=== PATIENT | female | born 1965 | race Caucasian/White ===

== ENCOUNTER 2017-08-22 16:43 | Emergency (ER) | payer BC ==
[2017-08-22] MEDS ORDERED: Sodium Chloride 0.9% 1,000 ML IV ONE (17:39)
[2017-08-22] MEDS ORDERED: Sodium Chloride 0.9% 10 ML Syringe FLUSH PRN (17:39)
[2017-08-22] MEDS ORDERED: Sodium Chloride 0.9% 2.5 ML Syringe FLUSH PRN (17:39)
[2017-08-22] MEDS ORDERED: methylPREDNISolone Sodium Succinate 125 MG/2 ML SDV IVPUSH ONE (17:39)
[2017-08-22] MEDS ORDERED: Ketorolac 30 MG/ML SDV IVPUSH ONE (17:39)
[2017-08-22] MEDS ORDERED: Albuterol/Ipratropium 3.0-0.5 MG/3 ML Neb Soln NEB ONE (17:39)
--- NOTE | 2017-08-22 17:44 | EDM.PDOC ---
<Jessica Sun - Last Filed: 08/22/17 19:15> ED HPI GENERAL MEDICAL PROBLEM - General Chief Complaint: ENT Problem Stated Complaint: COUGH/CHEST THROAT PAIN/VOMITING Time Seen by Provider: 08/22/17 17:30 - History of Present Illness INITIAL COMMENTS - FREE TEXT/NARRATIVE: HISTORY AND PHYSICAL: History of present illness: Patient is a 51-year-old female with no stated pulmonary history who presents with several days history of cough productive of phlegm sore throat low-grade fever of 99 and diffuse bilateral chest wall pain and upper back pain worse with coughing. Patient has not had any vomiting or abdominal pain and has had no diarrhea. She's been taking Tylenol and ibuprofen and says the highest temp that she has had his 99 but she is unsure of a fever because she keeps taking the medication. She is not specifically taking cough meds. Patient is not a smoker and is not around smokers. Patient is very concerned because of the severe body aches and discomfort as well as the chest wall pain and sore throat. She also complains of nasal congestion and drainage. Patient complains of some left flank pain but she feels it's more due to her coughing but she is concerned about her kidney although she has had no dysuria frequency urgency or hematuria Review of systems: As per history of present illness and below otherwise all systems reviewed and negative. Past medical history: As per history of present illness and as reviewed below otherwise noncontributory. Surgical history: As per history of present illness and as reviewed below otherwise noncontributory. Social history: No reported history of drug or alcohol abuse. Family history: As per history of present illness and as reviewed below otherwise noncontributory. Physical exam: Gen.: Well-developed well-nourished female who is tearful on my evaluation and does not have breathlessness but has a harsh cough productive of some clear and white phlegm on my evaluation and hoarseness without multiple voice. Patient also has nasal quality to voice and is blowing her nose copiously. Vital signs are noted by me including the O2 sat of 96-97% on room air HEENT: Atraumatic, normocephalic, pupils reactive, negative for conjunctival pallor or scleral icterus, mucous membranes moist, throat clear of exudates but there is some slight oropharyngeal erythema, there is no cervical adenopathy or nuchal rigidity, neck supple, nontender, trachea midline. Lungs: Breath sounds bilaterally with instant during expiratory wheezing bilaterally diminished breath sounds in the bases but no work of breathing, breath sounds equal bilaterally, chest nontender. Heart: S1S2, regular, negative for clicks, rubs, or JVD. Abdomen: Soft, nondistended, nontender. NABS. Negative for costovertebral tenderness. Pelvis: Stable nontender. Genitourinary: Deferred. Rectal: Deferred. Extremities: Atraumatic, negative for cords or calf pain. Neurovascular unremarkable. No pedal edema Neuro: Awake, alert, oriented. Cranial nerves II through XII unremarkable. Cerebellum unremarkable. Motor and sensory unremarkable throughout. Exam nonfocal. Diagnostics: CBC CMP rapid strep influenza lactic acid UA chest x-ray CT scan of the abdomen and pelvis Therapeutics: DuoNeb IV fluids Toradol Solu-Medrol morphine Patient is told nursing that the Toradol is not helping her kidney pain which she feels more on the left side and I will go ahead and order her morphine and order a CT scan to evaluate the kidney. I will endorse his case to Dr. Garland to follow-up the CT scan as well as the CMP results and disposition the patient appropriately. Impression: Influenza A positive, bronchospasm/viral bronchitis Definitive disposition and diagnosis as appropriate pending reevaluation and review of above. Sinus/Bilateral Ear/Chest Pain Score (Numeric/FACES): 9 - Related Data Allergies Allergy/AdvReac Type Severity Reaction Status Date / Time broccoli Allergy Abdominal Verified 08/22/17 20:07 Pain metoclopramide [From Reglan] Allergy Anaphylactic Verified 08/22/17 20:04 Shock ED ROS GENERAL - Review of Systems Review Of Systems: ROS reveals no pertinent complaints other than HPI. ED EXAM, GENERAL - Physical Exam Exam: See Below (See dictation) Course - Vital Signs Last Recorded V/S: Last Vital Signs Temp 98.2 F 08/22/17 17:59 Pulse 105 H 08/22/17 17:59 Resp 20 08/22/17 17:59 BP 111/74 08/22/17 17:59 Pulse Ox 96 08/22/17 17:59 - Orders/Labs/Meds Orders: Active Orders 24 hr Category Date Time Status RT Aerosol Therapy [RC] ASDIRECTED Care 08/22/17 17:39 Active Abdomen Pelvis wo Cont [CT] Stat Exams 08/22/17 18:39 Taken Chest 2V [CR] Stat Exams 08/22/17 17:39 Taken CPK [CREATINE KINASE,CK] [CHEM] Stat Lab 08/22/17 17:50 Results CULTURE STREP A CONFIRMATION [RM] Stat Lab 08/22/17 18:05 Results CULTURE URINE [RM] Stat Lab 08/22/17 18:05 Received STREP SCRN A RAPID W CULT CONF [RM] Stat Lab 08/22/17 18:05 Results TROPONIN I [CHEM] Stat Lab 08/22/17 17:50 Results Sodium Chloride 0.9% [Saline Flush] Med 08/22/17 17:39 Active 10 ml FLUSH ASDIRECTED PRN Sodium Chloride 0.9% [Saline Flush] Med 08/22/17 17:39 Active 2.5 ml FLUSH ASDIRECTED PRN Saline Lock Insert [OM.PC] Stat Oth 08/22/17 17:38 Ordered Medication Orders Sodium Chloride (Saline Flush) 10 ml FLUSH ASDIRECTED PRN PRN Reason: Keep Vein Open Sodium Chloride (Saline Flush) 2.5 ml FLUSH ASDIRECTED PRN PRN Reason: Keep Vein Open Labs: Laboratory Tests 08/22/17 08/22/17 08/22/17 Range/Units 17:50 17:50 17:50 WBC 12.72 H (4.0-11.0) K/uL RBC 5.01 (4.30-5.90) M/uL Hgb 14.0 (12.0-16.0) g/dL Hct 41.4 (36.0-46.0) % MCV 82.6 (80.0-98.0) fL MCH 27.9 (27.0-32.0) pg MCHC 33.8 (31.0-37.0) g/dL RDW Std Deviation 41.3 (28.0-62.0) fl RDW Coeff of Hunter 14 (11.0-15.0) % Plt Count 236 (150-400) K/uL MPV 9.40 (7.40-12.00) fL Add Manual Diff YES Neutrophils % (Manual) 56 (48.0-80.0) % Band Neutrophils % 17 % Lymphocytes % (Manual) 20 (16.0-40.0) % Monocytes % (Manual) 6 (0.0-15.0) % Eosinophils % (Manual) 1 (0.0-7.0) % Nucleated RBC % 0.0 /100WBC Absolute Seg Neuts 7.1 H (1.4-5.7) Band Neutrophils # 2.2 Lymphocytes # (Manual) 2.5 H (0.6-2.4) Monocytes # (Manual) 0.8 (0.0-0.8) Eosinophils # (Manual) 0.1 (0.0-0.7) Nucleated RBCs # 0 K/uL Lactate 2.0 (0.20-2.00) mmol/L Sodium 133 L (136-146) mmol/L Potassium 4.1 (3.5-5.1) mmol/L Chloride 99 (98-110) mmol/L Carbon Dioxide 20 L (21-31) mmol/L BUN 12 (6.0-23.0) mg/dL Creatinine 1.0 (0.6-1.5) mg/dL Est Cr Clr Drug Dosing TNP Estimated GFR (MDRD) 58.9 ml/min Glucose 317 H (60-110) mg/dL Calcium 9.7 (8.8-10.8) mg/dL Total Bilirubin 0.2 (0.1-1.5) mg/dL AST 13 (5-40) IU/L ALT 18 (8-54) IU/L Alkaline Phosphatase 130 (40-150) Creatine Kinase (9-236) IU/L Total Protein 7.2 (6.0-8.0) g/dL Albumin 3.9 (3.5-5.0) g/dL Globulin 3.3 (2.0-3.5) g/dL Albumin/Globulin Ratio 1.2 L (1.3-2.8) Urine Color Urine Appearance Urine pH (5.0-8.0) Ur Specific [place] (1.001-1.035) Urine Protein (NEGATIVE) mg/dL Urine Glucose (UA) (NEGATIVE) mg/dL Urine Ketones (NEGATIVE) mg/dL Urine Occult Blood (NEGATIVE) Urine Nitrite (NEGATIVE) Urine Bilirubin (NEGATIVE) Urine Urobilinogen (<2.0) EU/dL Ur Leukocyte Esterase (NEGATIVE) Urine RBC (0-2/HPF) Urine WBC (0-5/HPF) Ur Epithelial Cells (NONE-FEW) Urine Bacteria (NEGATIVE) Hyaline Casts (0-2/LPF) Urine Mucus (NONE-MOD) 08/22/17 08/22/17 Range/Units 17:50 18:05 WBC (4.0-11.0) K/uL RBC (4.30-5.90) M/uL Hgb (12.0-16.0) g/dL Hct (36.0-46.0) % MCV (80.0-98.0) fL MCH (27.0-32.0) pg MCHC (31.0-37.0) g/dL RDW Std Deviation (28.0-62.0) fl RDW Coeff of Hunter (11.0-15.0) % Plt Count (150-400) K/uL MPV (7.40-12.00) fL Add Manual Diff Neutrophils % (Manual) (48.0-80.0) % Band Neutrophils % % Lymphocytes % (Manual) (16.0-40.0) % Monocytes % (Manual) (0.0-15.0) % Eosinophils % (Manual) (0.0-7.0) % Nucleated RBC % /100WBC Absolute Seg Neuts (1.4-5.7) Band Neutrophils # Lymphocytes # (Manual) (0.6-2.4) Monocytes # (Manual) (0.0-0.8) Eosinophils # (Manual) (0.0-0.7) Nucleated RBCs # K/uL Lactate (0.20-2.00) mmol/L Sodium (136-146) mmol/L Potassium (3.5-5.1) mmol/L Chloride (98-110) mmol/L Carbon Dioxide (21-31) mmol/L BUN (6.0-23.0) mg/dL Creatinine (0.6-1.5) mg/dL Est Cr Clr Drug Dosing Estimated GFR (MDRD) ml/min Glucose (60-110) mg/dL Calcium (8.8-10.8) mg/dL Total Bilirubin (0.1-1.5) mg/dL AST (5-40) IU/L ALT (8-54) IU/L Alkaline Phosphatase (40-150) Creatine Kinase 28 (9-236) IU/L Total Protein (6.0-8.0) g/dL Albumin (3.5-5.0) g/dL Globulin (2.0-3.5) g/dL Albumin/Globulin Ratio (1.3-2.8) Urine Color YELLOW Urine Appearance CLEAR Urine pH 6.0 (5.0-8.0) Ur Specific [place] 1.020 (1.001-1.035) Urine Protein TRACE (NEGATIVE) mg/dL Urine Glucose (UA) >=1000 (NEGATIVE) mg/dL Urine Ketones TRACE H (NEGATIVE) mg/dL Urine Occult Blood MODERATE (NEGATIVE) Urine Nitrite NEGATIVE (NEGATIVE) Urine Bilirubin NEGATIVE (NEGATIVE) Urine Urobilinogen 0.2 (<2.0) EU/dL Ur Leukocyte Esterase NEGATIVE (NEGATIVE) Urine RBC 1-3 (0-2/HPF) Urine WBC 0-2 (0-5/HPF) Ur Epithelial Cells FEW (NONE-FEW) Urine Bacteria RARE (NEGATIVE) Hyaline Casts 0-1 (0-2/LPF) Urine Mucus LIGHT (NONE-MOD) Meds: Medications Generic Name Dose Route Start Last Admin Trade Name Jean PRN Reason Stop Dose Admin Sodium Chloride 10 ml 08/22/17 17:39 Saline Flush FLUSH ASDIRECTED PRN Keep Vein Open Sodium Chloride 2.5 ml 08/22/17 17:39 Saline Flush FLUSH ASDIRECTED PRN Keep Vein Open Discontinued Medications Generic Name Dose Route Start Last Admin Trade Name Jean PRN Reason Stop Dose Admin Albuterol/Ipratropium 3 ml 08/22/17 17:39 08/22/17 17:56 Duoneb 3.0-0.5 Mg/3 Ml NEB 08/22/17 17:40 3 ml ONETIME ONE Administration Sodium Chloride 1,000 mls @ 999 mls/hr 08/22/17 17:39 08/22/17 17:57 Normal Saline IV 08/22/17 18:39 999 mls/hr STAT ONE Administration Ketorolac Tromethamine 30 mg 08/22/17 17:39 08/22/17 17:58 Toradol IVPUSH 08/22/17 17:40 30 mg ONETIME ONE Administration Methylprednisolone Sodium Succinate 125 mg 08/22/17 17:39 08/22/17 17:58 Solu-Medrol IVPUSH 08/22/17 17:40 125 mg ONETIME ONE Administration Morphine Sulfate 4 mg 08/22/17 18:39 08/22/17 18:45 Morphine IVPUSH 08/22/17 18:40 4 mg ONETIME ONE Administration Departure - Departure Disposition: Home, Self-Care 01 Condition: Good Clinical Impression: Influenza A, Bronchospasm - Discharge Information Referrals: PCP,None [Primary Care Provider] - Forms: ED Department Discharge Additional Instructions: The following information is given to patients seen in the emergency department who are being discharged to home. This information is to outline your options for follow-up care. We provide all patients seen in our emergency department with a follow-up referral. The need for follow-up, as well as the timing and circumstances, are variable depending upon the specifics of your emergency department visit. If you don't have a primary care physician on staff, we will provide you with a referral. We always advise you to contact your personal physician following an emergency department visit to inform them of the circumstance of the visit and for follow-up with them and/or the need for any referrals to a consulting specialist. The emergency department will also refer you to a specialist when appropriate. This referral assures that you have the opportunity for followup care with a specialist. All of these measure are taken in an effort to provide you with optimal care, which includes your followup. Under all circumstances we always encourage you to contact your private physician who remains a resource for coordinating your care. When calling for followup care, please make the office aware that this follow-up is from your recent emergency room visit. If for any reason you are refused follow-up, please contact the [facility] emergency department at and ask to speak to the emergency department charge nurse. [facility] Primary care- Internal Medicine and Family [address] [id number] - My Orders Last 24 Hours: My Active Orders 08/22/17 17:50 CPK [CREATINE KINASE,CK] [CHEM] Stat TROPONIN I [CHEM] Stat 08/22/17 18:05 CULTURE URINE [RM] Stat - Assessment/Plan Last 24 Hours: My Active Orders 08/22/17 17:50 CPK [CREATINE KINASE,CK] [CHEM] Stat TROPONIN I [CHEM] Stat 08/22/17 18:05 CULTURE URINE [RM] Stat <Raghu Silva - Last Filed: 08/22/17 20:16> ED HPI GENERAL MEDICAL PROBLEM - History of Present Illness INITIAL COMMENTS - FREE TEXT/NARRATIVE: Received patient signed out/shift change Agree with above history and physical Signed out follow CT abdomen and pelvis and lab, patient known to be influenza positive Patient is in no distress alert and cooperative HEENT NCAT PERRLA EOMI nares patent oropharynx mild erythema neck supple no meningeal sign Chest clear throughout no wheeze or crackle post DuoNeb and Solu-Medrol CV regular rate and rhythm Abdomen soft nontender nondistended bowel sounds in all 4 quadrants no costovertebral tenderness Extremities four-inch motion strength 5 out of 5 no edema [employer] alert nonfocal Lab as below Assessment Influenza A Hematuria Left flank pain/clinical UTI Pulmonary infiltrates secondary to above Plan Cipro 500 by mouth twice a day #20 no refill Medrol Dosepak HFA Phenergan with codeine Follow-up with primary care as scheduled in one week Return if symptoms persist or worsen Definitive disposition and diagnosis as appropriate pending reevaluation and review of above Departure - Departure Time of Disposition: 20:16 Condition: Good
[2017-08-22] MEDS ORDERED: Morphine 2 MG/ML Syringe IVPUSH ONE (18:39)
[2017-08-22 19:27] LABS: CHLORIDE,CL 99 mmol/L (98-110); SODIUM,NA 133 mmol/L (136-146)
--- NOTE | 2017-08-23 17:08 | CR ---
EXAM DATE: 08/22/17 PATIENT'S AGE: 51 Patient: FARZANA GARSIA Facility: [place], [place] Site . Site : 1965 Study: XRay Chest [id number]/1/[id number] 7:08:08 PM Ordering Physician: Dino Lopez Final Report: INDICATION: cough, sore throat TECHNIQUE: Chest 2 views. COMPARISON: None. FINDINGS: Cardiovascular and mediastinum: Heart size and vasculature are normal in caliber and appearance. Mediastinum is within normal limits. Lungs and pleural spaces: Lungs are clear. No sign of infiltrate or mass. No sign of pleural effusion. No pneumothorax. Bones and soft tissues: No significant findings. IMPRESSION: Unremarkable chest. Dictated by: Rivas Croft MD @ 08/22/2017 19:10:56 (Electronic Signature) Report Signed by Proxy. [facility]
--- NOTE | 2017-08-23 17:10 | CT ---
EXAM DATE: 08/22/17 PATIENT'S AGE: 51 Patient: FARZANA GARSIA Facility: [place], [place] Site . Site : 1965 Study: CT Abdomen/Pelvis W/O [id number]/1/[id number] 7:19:48 PM Ordering Physician: Dino Lopez Final Report: INDICATION: Generalized abdominal pain. Low back pain. History of kidney stones. CT ABDOMEN AND PELVIS WITHOUT CONTRAST TECHNIQUE: Multidetector CT imaging was performed through the abdomen and pelvis without intravenous contrast administration. Coronal and sagittal reconstructions were generated. COMPARISON: None. FINDINGS: Lower chest: Patchy consolidation in the medial portion of the left lower lobe and minimal infiltrate in the right lower lobe, suspicious for pneumonia. Liver: Within normal limits. Gallbladder and bile ducts: No gallbladder wall thickening or calcified gallstones. No biliary dilation identified. Pancreas: Unremarkable. Spleen: Unremarkable aside from a calcified granuloma. Adrenals: No nodules or masses. 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 No urinary tract stones identified. No renal masses or hydronephrosis. No bladder mass or definite wall thickening. Gastrointestinal tract: Normal caliber bowel without wall thickening. The appendix is normal. Vascular structures: Mild atherosclerotic calcifications. Peritoneum: No free air, abscess, or significant free fluid. Lymph nodes: No pathologically enlarged nodes identified. Reproductive organs: No pelvic masses. Bones: Postoperative changes of lumbosacral fusion. IMPRESSION: 1. Bilateral lower lobe lung infiltrates, left considerably worse than right, most likely representing pneumonia. 2. No acute intra-abdominal findings. No urinary tract stones or hydronephrosis. 3. Nonacute additional findings as detailed above. DEVON BROOKS MD [employer] Dictated by Dale Brooks MD @ 08/22/2017 7:32:18 PM Dictated by: Dale Brooks MD @ 08/22/2017 19:35:33 (Electronic Signature) Report Signed by Proxy. [facility]
== END 2017-08-22 20:37 | disposition home or self-care (01) ==
LOC: MW.ED 16:43
DX: J10.1 Influenza due to other identified influenza virus with other respiratory manifestations (principal); J20.8 Acute bronchitis due to other specified organisms; Z88.8 Allergy status to other drugs, medicaments and biological substances; Z91.018 Allergy to other foods
CPT/HCPCS: 36415; 71046; 74176; 80053; 81001; 82550; 83605; 84484; 85025; 87081; 87086; 87804; 87880; 96361; 96374; 96375; 99284; J1885; J2270; J2930; J7040; 99283

== ENCOUNTER 2017-08-31 14:18 | Observation (INO) | payer BC ==
[2017-08-31] MEDS ORDERED: Albuterol/Ipratropium 3.0-0.5 MG/3 ML Neb Soln NEB ONE (14:40)
[2017-08-31] MEDS ORDERED: Ondansetron 4 MG/2 ML SDV IVPUSH ONE (14:40)
[2017-08-31] MEDS ORDERED: Sodium Chloride 0.9% 2.5 ML Syringe FLUSH PRN (14:40)
[2017-08-31] MEDS ORDERED: Sodium Chloride 0.9% 10 ML Syringe FLUSH PRN (14:40)
--- NOTE | 2017-08-31 14:41 | EDM.PDOC ---
ED HPI GENERAL MEDICAL PROBLEM - General Chief Complaint: Headache Stated Complaint: HEADACHE, BLOOD IN NASAL DISCHARGE Time Seen by Provider: 08/31/17 14:25 Source of Information: Reports: Patient History Limitations: Reports: No Limitations - History of Present Illness INITIAL COMMENTS - FREE TEXT/NARRATIVE: History of present illness: []Patient has been coughing for over a week and was tested positive for influenza. Patient has been coughing so much that her head hurts severely when she coughs in her mucus is blood-tinged. She is not feeling like she is improving. Patient has not been monitoring her glucose she lost her monitor. Patient is currently taking ciprofloxacin for UTI. Review of systems: As per history of present illness and below otherwise all systems reviewed and negative. Past medical history: As per history of present illness and as reviewed below otherwise noncontributory. Surgical history: As per history of present illness and as reviewed below otherwise noncontributory. Social history: No reported history of drug or alcohol abuse. Family history: As per history of present illness and as reviewed below otherwise noncontributory. Physical exam: General: Well developed, well nourished in NAD HEENT: Atraumatic, normocephalic, pupils reactive, negative for conjunctival pallor or scleral icterus, mucous membranes moist, throat clear, neck supple, nontender, trachea midline. Lungs: Clear to auscultation, breath sounds equal bilaterally, chest nontender. Heart: S1S2, regular, negative for clicks, rubs, or JVD. Abdomen: Soft, nondistended, nontender. Negative for masses or hepatosplenomegaly. Negative for costovertebral tenderness. Pelvis: Stable nontender. Genitourinary: Deferred. Rectal: Deferred. Extremities: Atraumatic, negative for cords or calf pain. Neurovascular unremarkable. Neuro: Awake, alert, oriented. Cranial nerves II through XII unremarkable. Cerebellum unremarkable. Motor and sensory unremarkable throughout. Exam nonfocal. Diagnostics: []Labs show elevated white count, glucose is 500, x-ray shows posterior infiltrate Therapeutics: []IV hydration, insulin given in the ED Impression: []Uncontrolled diabetes, pneumonia likely viral given she is positive for influenza Plan: []Admit for IV hydration and observation. Definitive disposition and diagnosis as appropriate pending reevaluation and review of above. head Pain Score (Numeric/FACES): 7 - Related Data Allergies Allergy/AdvReac Type Severity Reaction Status Date / Time broccoli Allergy Abdominal Verified 08/31/17 14:38 Pain metoclopramide [From Reglan] Allergy Anaphylactic Verified 08/31/17 14:38 Shock Home Meds: Home Meds Albuterol [Proair HFA] 8.5 gm IH ASDIRECTED 08/31/17 [History] Ciprofloxacin [Cipro XR] 1 tab PO BID 08/31/17 [History] DULoxetine HCl [Cymbalta] 60 mg PO DAILY 08/31/17 [History] DULoxetine [Cymbalta] 30 mg PO DAILY 08/31/17 [History] Gabapentin [Neurontin] 300 mg PO TID 08/31/17 [History] Levothyroxine [Synthroid] 50 mcg PO ACBREAKFAST 08/31/17 [History] Lisinopril [Prinivil] 5 mg PO DAILY 08/31/17 [History] Omeprazole 20 mg PO DAILY 08/31/17 [History] Potassium Chloride 1 tab PO DAILY 08/31/17 [History] QUEtiapine Fumarate [Quetiapine Fumarate ER] 1.5 tab PO DAILY 08/31/17 [History] Topiramate [Trokendi Xr] 100 mg PO DAILY 08/31/17 [History] atorvaSTATin [Lipitor] 40 mg PO BEDTIME 08/31/17 [History] lamoTRIgine [Lamictal XR] 200 mg PO DAILY 08/31/17 [History] metFORMIN [Glucophage XR] 1,000 mg PO DAILY 08/31/17 [History] Past Medical History HEENT History: Reports: Impaired Vision Cardiovascular History: Reports: Hypertension Psychiatric History: Reports: Depression Endocrine/Metabolic History: Reports: Diabetes, Type II - Past Surgical History Female Surgical History: Reports: Hysterectomy Social & Family History - Family History Family Medical History: Noncontributory - Tobacco Use Smoking Status *Q: Unknown Ever Smoked Second Hand Smoke Exposure: No - Recreational Drug Use Recreational Drug Use: No ED ROS GENERAL - Review of Systems Review Of Systems: See Below (See history of present illness) ED EXAM, GENERAL - Physical Exam Exam: See Below (History of present illness) Course - Vital Signs Last Recorded V/S: Last Vital Signs Temp 98.6 F 08/31/17 16:34 Pulse 75 02/10/18 16:34 Resp 18 08/31/17 16:34 BP 96/55 L 08/31/17 16:34 Pulse Ox 92 L 08/31/17 16:34 - Orders/Labs/Meds Orders: Active Orders 24 hr Category Date Time Status Patient Status [ADT] Stat ADT 08/31/17 15:59 Active RT Aerosol Therapy [RC] ASDIRECTED Care 08/31/17 14:40 Active Chest 2V [CR] Stat Exams 08/31/17 14:40 Taken HYDROmorphone [Dilaudid] Med 08/31/17 14:40 Active 0.5 mg IVPUSH Q1H PRN Sodium Chloride 0.9% [Saline Flush] Med 08/31/17 14:40 Active 10 ml FLUSH ASDIRECTED PRN Sodium Chloride 0.9% [Saline Flush] Med 08/31/17 14:40 Active 2.5 ml FLUSH ASDIRECTED PRN Saline Lock Insert [OM.PC] Stat Oth 08/31/17 14:39 Ordered Medication Orders Hydromorphone HCl (Dilaudid) 0.5 mg IVPUSH Q1H PRN PRN Reason: Pain Last Admin: 08/31/17 16:06 Dose: 0.5 mg Admin: 08/31/17 14:58 Dose: 0.5 mg Sodium Chloride (Saline Flush) 10 ml FLUSH ASDIRECTED PRN PRN Reason: Keep Vein Open Sodium Chloride (Saline Flush) 2.5 ml FLUSH ASDIRECTED PRN PRN Reason: Keep Vein Open Labs: Laboratory Tests 08/31/17 08/31/17 08/31/17 Range/Units 14:50 14:50 16:26 WBC 13.31 H (4.0-11.0) K/uL RBC 4.55 (4.30-5.90) M/uL Hgb 12.9 (12.0-16.0) g/dL Hct 39.2 (36.0-46.0) % MCV 86.2 (80.0-98.0) fL MCH 28.4 (27.0-32.0) pg MCHC 32.9 (31.0-37.0) g/dL RDW Std Deviation 42.8 (28.0-62.0) fl RDW Coeff of Hunter 14 (11.0-15.0) % Plt Count 407 H (150-400) K/uL MPV 8.90 (7.40-12.00) fL Add Manual Diff YES Neutrophils % (Manual) 72 (48.0-80.0) % Band Neutrophils % 3 % Lymphocytes % (Manual) 21 (16.0-40.0) % Monocytes % (Manual) 3 (0.0-15.0) % Eosinophils % (Manual) 1 (0.0-7.0) % Nucleated RBC % 0.0 /100WBC Absolute Seg Neuts 9.6 H (1.4-5.7) Band Neutrophils # 0.4 Lymphocytes # (Manual) 2.8 H (0.6-2.4) Monocytes # (Manual) 0.4 (0.0-0.8) Eosinophils # (Manual) 0.1 (0.0-0.7) Nucleated RBCs # 0 K/uL Sodium 135 L (136-146) mmol/L Potassium 3.9 (3.5-5.1) mmol/L Chloride 103 (98-110) mmol/L Carbon Dioxide 21 (21-31) mmol/L BUN 14 (6.0-23.0) mg/dL Creatinine 1.1 (0.6-1.5) mg/dL Est Cr Clr Drug Dosing TNP Estimated GFR (MDRD) 52.6 ml/min Glucose 509 H* (60-110) mg/dL POC Glucose 284 H (60-110) mg/dL Calcium 9.6 (8.8-10.8) mg/dL Total Bilirubin 0.4 (0.1-1.5) mg/dL AST 13 (5-40) IU/L ALT 14 (8-54) IU/L Alkaline Phosphatase 105 (40-150) Total Protein 7.2 (6.0-8.0) g/dL Albumin 3.4 L (3.5-5.0) g/dL Globulin 3.8 H (2.0-3.5) g/dL Albumin/Globulin Ratio 0.9 L (1.3-2.8) Meds: Medications Generic Name Dose Route Start Last Admin Trade Name Freq PRN Reason Stop Dose Admin Hydromorphone HCl 0.5 mg 08/31/17 14:40 08/31/17 16:06 Dilaudid IVPUSH 0.5 mg Q1H PRN Administration Pain Sodium Chloride 10 ml 08/31/17 14:40 Saline Flush FLUSH ASDIRECTED PRN Keep Vein Open Sodium Chloride 2.5 ml 08/31/17 14:40 Saline Flush FLUSH ASDIRECTED PRN Keep Vein Open Discontinued Medications Generic Name Dose Route Start Last Admin Trade Name Freq PRN Reason Stop Dose Admin Acetaminophen/Codeine Phosphate 2 tab 08/31/17 14:47 08/31/17 15:01 Tylenol With Codeine No.3 300mg/30mg PO 08/31/17 14:48 2 tab ONETIME ONE Administration Albuterol/Ipratropium 3 ml 08/31/17 14:40 08/31/17 15:18 Duoneb 3.0-0.5 Mg/3 Ml NEB 08/31/17 14:41 3 ml ONETIME ONE Administration Lactated Ringer's 1,000 mls @ 999 mls/hr 08/31/17 15:57 08/31/17 16:03 Ringers, Lactated IV 08/31/17 16:57 999 mls/hr .BOLUS ONE Administration Insulin Human Regular 10 unit 08/31/17 15:29 08/31/17 15:47 Novolin R IVPUSH 08/31/17 15:30 10 units ONETIME ONE Administration Protocol Ondansetron HCl 4 mg 08/31/17 14:40 08/31/17 14:58 Zofran IVPUSH 08/31/17 14:41 4 mg ONETIME ONE Administration Departure - Departure Time of Disposition: 17:05 Disposition: Refer to Observation Condition: Good Clinical Impression: Viral pneumonia, Uncontrolled diabetes mellitus - Discharge Information Referrals: PCP,None [Primary Care Provider] - Forms: ED Department Discharge - My Orders Last 24 Hours: My Active Orders 08/31/17 14:39 Saline Lock Insert [OM.PC] Stat 08/31/17 14:40 RT Aerosol Therapy [RC] ASDIRECTED Chest 2V [CR] Stat HYDROmorphone [Dilaudid] 0.5 mg IVPUSH Q1H PRN Sodium Chloride 0.9% [Saline Flush] 10 ml FLUSH ASDIRECTED PRN Sodium Chloride 0.9% [Saline Flush] 2.5 ml FLUSH ASDIRECTED PRN 08/31/17 15:59 Patient Status [ADT] Stat - Assessment/Plan Last 24 Hours: My Active Orders 08/31/17 14:39 Saline Lock Insert [OM.PC] Stat 08/31/17 14:40 RT Aerosol Therapy [RC] ASDIRECTED Chest 2V [CR] Stat HYDROmorphone [Dilaudid] 0.5 mg IVPUSH Q1H PRN Sodium Chloride 0.9% [Saline Flush] 10 ml FLUSH ASDIRECTED PRN Sodium Chloride 0.9% [Saline Flush] 2.5 ml FLUSH ASDIRECTED PRN 08/31/17 15:59 Patient Status [ADT] Stat
[2017-08-31] MEDS ORDERED: Acetaminophen/Codeine 300-30 MG Tab PO ONE (14:47)
[2017-08-31] MEDS: HYDROmorphone 1 MG/ML Syringe IVPUSH PRN ×3 (14:58→21:26)
[2017-08-31 15:25] LABS: CHLORIDE,CL 103 mmol/L (98-110); SODIUM,NA 135 mmol/L (136-146)
[2017-08-31] MEDS ORDERED: Insulin Regular, Human 100 Units/ML 10 ML Vial IVPUSH ONE (15:29)
[2017-08-31] MEDS ORDERED: Lactated Ringers 1,000 ML IV ONE (15:57)
--- NOTE | 2017-08-31 16:19 | PCM.HP ---
H&P History of Present Illness - General Date of Service: 08/31/17 Admit Problem/Dx: Admission Diagnosis/Problem Admission Diagnosis/Problem Pneumonia Source of Information: Patient History Limitations: Reports: No Limitations - History of Present Illness Initial Comments - Free Text/Narative: 52-year-old female presenting to emergency department with chief complaint of migraine headache, coughing, and runny nose 2 weeks with past medical history of hypertension, type 2 diabetes, GERD, migraine, and depression. Patient states that for the past 2 weeks she's had worsening coughing with production of brown to reddish tinged sputum. She believes it has been getting worse and reports some associated fever and chills. She recently was diagnosed with influenza A. She also was taking ciprofloxacin for a suspected urinary tract infection. Her primary reason for coming in the emergency department today was that her headache was so bad and the cough was just making it worse. She complains of some nasal congestion as well. She denies any nausea, vomiting , diarrhea, chest pain, palpitations, syncopal episodes or new focal neurologic deficits. She does not have a history of asthma but did state that the DuoNeb she received in emergency department helped. In the emergency department: She had mild leukocytosis of 13.3 1K, hyperglycemia 509, normal stable vital signs. She was given Tylenol with codeine, 1 DuoNeb, 0.5 mg hydromorphone 2 and 10 units of insulin. She also was given 1 L bolus of LR, and 4 mg Zofran. Chest x-ray was unremarkable. Patient is admitted for hyperglycemia. head Pain Score (Numeric/FACES): 7 - Related Data Allergies/Adverse Reactions: Allergies Allergy/AdvReac Type Severity Reaction Status Date / Time broccoli Allergy Abdominal Verified 08/31/17 14:38 Pain metoclopramide [From Reglan] Allergy Anaphylactic Verified 08/31/17 14:38 Shock Home Medications: Home Meds Albuterol [Proair HFA] 8.5 gm IH ASDIRECTED 08/31/17 [History] Ciprofloxacin [Cipro XR] 1 tab PO BID 08/31/17 [History] DULoxetine HCl [Cymbalta] 60 mg PO DAILY 08/31/17 [History] DULoxetine [Cymbalta] 30 mg PO DAILY 08/31/17 [History] Gabapentin [Neurontin] 300 mg PO TID 08/31/17 [History] Levothyroxine [Synthroid] 50 mcg PO ACBREAKFAST 08/31/17 [History] Lisinopril [Prinivil] 5 mg PO DAILY 08/31/17 [History] Omeprazole 20 mg PO DAILY 08/31/17 [History] Potassium Chloride 1 tab PO DAILY 08/31/17 [History] QUEtiapine Fumarate [Quetiapine Fumarate ER] 1.5 tab PO DAILY 08/31/17 [History] Topiramate [Trokendi Xr] 100 mg PO DAILY 08/31/17 [History] atorvaSTATin [Lipitor] 40 mg PO BEDTIME 08/31/17 [History] lamoTRIgine [Lamictal XR] 200 mg PO DAILY 08/31/17 [History] metFORMIN [Glucophage XR] 1,000 mg PO DAILY 08/31/17 [History] Past Medical History - Past Health History Medical/Surgical History: Denies Medical/Surgical History HEENT History: Reports: Impaired Vision Cardiovascular History: Reports: Hypertension Psychiatric History: Reports: Depression Endocrine/Metabolic History: Reports: Diabetes, Type II - Past Surgical History Female Surgical History: Reports: Hysterectomy Social & Family History - Family History Family Medical History: Noncontributory - Tobacco Use Smoking Status *Q: Unknown Ever Smoked Second Hand Smoke Exposure: No - Recreational Drug Use Recreational Drug Use: No H&P Review of Systems - Review of Systems: Review Of Systems: See Below General: Reports: Fever, Chills. Denies: Fatigue HEENT: Reports: Headaches. Denies: Dysphasia, Sore Throat Pulmonary: Reports: Shortness of Breath, Sputum, Hemoptysis. Denies: Wheezing Cardiovascular: Denies: Chest Pain, Palpitations, Edema Gastrointestinal: Denies: Abdominal Pain, Black Stool, Bloody Stool, Diarrhea, Nausea, Vomiting Genitourinary: Denies: Dysuria, Hematuria Musculoskeletal: Denies: Neck Pain, Shoulder Pain Skin: Denies: Cyanosis Psychiatric: Denies: Confusion Neurological: Reports: Headache. Denies: Confusion, Dizziness Hematologic/Lymphatic: Denies: Anemia Exam - Exam Exam: See Below - Vital Signs Vital Signs: Last Vital Signs Temp 98 F 08/31/17 14:30 Pulse 87 08/31/17 14:30 Resp 18 08/31/17 14:30 BP 121/69 08/31/17 14:30 Pulse Ox 94 L 08/31/17 14:30 Weight: 73 kg - Exam Quality Assessment: DVT Prophylaxis General: Alert, Oriented, Cooperative HEENT: Conjunctiva Clear, EACs Clear, EOMI, Hearing Intact, Mucosa Moist & [place] , Nares Patent, PERRLA Neck: Supple, Trachea Midline, 2 Lungs: Clear to Auscultation, Normal Respiratory Effort Cardiovascular: Regular Rate, Regular Rhythm, Normal S1, Normal S2 GI/Abdominal Exam: Normal Bowel Sounds, Soft, Non-Tender, No Organomegaly, No Distention Back Exam: Normal Inspection Extremities: Normal Inspection, Non-Tender, No Pedal Edema, Normal Capillary Refill Peripheral Pulses: 2+: Radial (L), Radial (R), Posterior Tibial (L), Posterior Tibial (R), Dorsalis Pedis (L), Dorsalis Pedis (R) Skin: Warm, Dry, Intact Neurological: Cranial Nerves Intact, Reflexes Equal Bilateral Neuro Extensive - Mental Status: Alert, Oriented x3, Normal Mood/Affect, Normal Cognition Neuro Extensive - Motor, Sensory, Reflexes: CN II-XII Intact Psychiatric: Alert, Normal Affect, Normal Mood - Patient Data Lab Results Last 24 hrs: Laboratory Results - last 24 hr 08/31/17 08/31/17 Range/Units 14:50 14:50 WBC 13.31 H (4.0-11.0) K/uL RBC 4.55 (4.30-5.90) M/uL Hgb 12.9 (12.0-16.0) g/dL Hct 39.2 (36.0-46.0) % MCV 86.2 (80.0-98.0) fL MCH 28.4 (27.0-32.0) pg MCHC 32.9 (31.0-37.0) g/dL RDW Std Deviation 42.8 (28.0-62.0) fl RDW Coeff of Hunter 14 (11.0-15.0) % Plt Count 407 H (150-400) K/uL MPV 8.90 (7.40-12.00) fL Add Manual Diff YES Neutrophils % (Manual) 72 (48.0-80.0) % Band Neutrophils % 3 % Lymphocytes % (Manual) 21 (16.0-40.0) % Monocytes % (Manual) 3 (0.0-15.0) % Eosinophils % (Manual) 1 (0.0-7.0) % Nucleated RBC % 0.0 /100WBC Absolute Seg Neuts 9.6 H (1.4-5.7) Band Neutrophils # 0.4 Lymphocytes # (Manual) 2.8 H (0.6-2.4) Monocytes # (Manual) 0.4 (0.0-0.8) Eosinophils # (Manual) 0.1 (0.0-0.7) Nucleated RBCs # 0 K/uL Sodium 135 L (136-146) mmol/L Potassium 3.9 (3.5-5.1) mmol/L Chloride 103 (98-110) mmol/L Carbon Dioxide 21 (21-31) mmol/L BUN 14 (6.0-23.0) mg/dL Creatinine 1.1 (0.6-1.5) mg/dL Est Cr Clr Drug Dosing TNP Estimated GFR (MDRD) 52.6 ml/min Glucose 509 H* (60-110) mg/dL Calcium 9.6 (8.8-10.8) mg/dL Total Bilirubin 0.4 (0.1-1.5) mg/dL AST 13 (5-40) IU/L ALT 14 (8-54) IU/L Alkaline Phosphatase 105 (40-150) Total Protein 7.2 (6.0-8.0) g/dL Albumin 3.4 L (3.5-5.0) g/dL Globulin 3.8 H (2.0-3.5) g/dL Albumin/Globulin Ratio 0.9 L (1.3-2.8) Result Diagrams: 08/31/17 14:50 08/31/17 14:50 *Q Meaningful Use (ADM) - VTE *Q VTE Criteria *Q: - Stroke *Q Stroke Criteria *Q: - AMI *Q AMI Criteria *Q: - Problem List (1) Hyperglycemia due to type 2 diabetes mellitus SNOMED Code(s): 585060405194487 ICD Code: E11.65 - TYPE 2 DIABETES MELLITUS WITH HYPERGLYCEMIA Status: Acute Priority: High Current Visit: Yes Qualifiers: Diabetes mellitus terminologist insulin use: unspecified assisted insulin use status Qualified Code(s): E11.65 - Type 2 diabetes mellitus with hyperglycemia (2) Community acquired pneumonia SNOMED Code(s): 610884208 ICD Code: J18.9 - PNEUMONIA, UNSPECIFIED ORGANISM Status: Suspected Priority: Medium Current Visit: Yes Qualifiers: Laterality: unspecified laterality Qualified Code(s): J18.9 - Pneumonia, unspecified organism (3) Hypertension SNOMED Code(s): 76597704 ICD Code: I10 - ESSENTIAL (PRIMARY) HYPERTENSION Status: Chronic Priority : Medium Current Visit: Yes Qualifiers: Hypertension type: essential hypertension Qualified Code(s): I10 - Essential (primary) hypertension (4) Hypothyroidism SNOMED Code(s): 70765734 ICD Code: E03.9 - HYPOTHYROIDISM, UNSPECIFIED Status: Chronic Priority: Medium Current Visit: Yes Qualifiers: Hypothyroidism type: unspecified Qualified Code(s): E03.9 - Hypothyroidism , unspecified Problem List Initiated/Reviewed/Updated: Yes Orders Last 24hrs: Active Orders 24 hr Category Date Time Status Patient Status [ADT] Stat ADT 08/31/17 15:59 Active RT Aerosol Therapy [RC] ASDIRECTED Care 08/31/17 14:40 Active Chest 2V [CR] Stat Exams 08/31/17 14:40 Taken HYDROmorphone [Dilaudid] Med 08/31/17 14:40 Active 0.5 mg IVPUSH Q1H PRN Lactated Ringers [Ringers, Lactated] 1,000 ml Med 08/31/17 15:57 Active IV .BOLUS Sodium Chloride 0.9% [Saline Flush] Med 08/31/17 14:40 Active 10 ml FLUSH ASDIRECTED PRN Sodium Chloride 0.9% [Saline Flush] Med 08/31/17 14:40 Active 2.5 ml FLUSH ASDIRECTED PRN Saline Lock Insert [OM.PC] Stat Oth 08/31/17 14:39 Ordered Medication Orders Hydromorphone HCl (Dilaudid) 0.5 mg IVPUSH Q1H PRN PRN Reason: Pain Last Admin: 08/31/17 16:06 Dose: 0.5 mg Admin: 08/31/17 14:58 Dose: 0.5 mg Lactated Ringer's (Ringers, Lactated) 1,000 mls @ 999 mls/hr IV .BOLUS ONE Stop: 08/31/17 16:57 Last Admin: 08/31/17 16:03 Dose: 999 mls/hr Sodium Chloride (Saline Flush) 10 ml FLUSH ASDIRECTED PRN PRN Reason: Keep Vein Open Sodium Chloride (Saline Flush) 2.5 ml FLUSH ASDIRECTED PRN PRN Reason: Keep Vein Open Assessment/Plan Comment:: 52-year-old female admitted 08/31/27 for hyperglycemia and suspected community acquired pneumonia with past medical history of hypertension, type 2 diabetes, GERD, depression, and migraine. Hyperglycemia: We'll treat with insulin sliding scale medium dose. 3 times a day before meals Accu-Cheks. Suspect that the patient is dehydrated recently and hasn't been taking her medications appropriately. Will monitor closely. IVF LR at 150 ml/hr Suspected to be community acquired pneumonia: Patient's chest x-ray was negative however she is somewhat dehydrated and does have a white count with bandemia. Will treat with Levaquin and monitor labs. Patient also has symptomatic upper respiratory tract congestion which we will treat with Flonase and Afrin. I think that this may help with her migraine as well. Migraine: Currently better controlled after 1 mg of Dilaudid in ED. Will treat with fluids as well as Dilaudid and zofran as needed. Hypertension: normal vital signs we'll continue home meds GERD: Stable continue home meds Depression: Stable continue home meds
[2017-08-31] MEDS ORDERED: Ondansetron 4 MG/2 ML SDV IVPUSH PRN (17:33)
[2017-08-31] MEDS ORDERED: Acetaminophen 325 MG Tab PO PRN (17:33)
[2017-08-31] MEDS ORDERED: Oxymetazoline 0.05% Nasal Spray 15 ML Bottle NAS PRN (17:33)
[2017-08-31] MEDS ORDERED: Temazepam 15 MG Cap PO PRN (17:33)
[2017-08-31] MEDS ORDERED: Albuterol/Ipratropium 3.0-0.5 MG/3 ML Neb Soln NEB PRN (17:33)
[2017-08-31] MEDS ORDERED: Ondansetron 4 MG Tab.DIS PO PRN (17:33)
[2017-08-31] MEDS ORDERED: Levofloxacin/Dextrose 5%-Water 750 MG in Premix Bag 1 BAG IV SCH (18:00)
[2017-08-31] MEDS: Lactated Ringers 1,000 ML IV SCH (18:41)
[2017-08-31] MEDS: Enoxaparin 40 MG/0.4 ML Syringe SUBCUT SCH (20:31)
[2017-08-31] MEDS ORDERED: atorvaSTATin 40 MG Tab PO SCH (21:00)
[2017-08-31] MEDS: Fluticasone Propionate Nasal Spray 16 GM Bottle NASBOTH SCH (21:26)
[2017-08-31] MEDS: Gabapentin 300 MG Cap PO SCH (21:28)
[2017-09-01] MEDS: Lactated Ringers 1,000 ML IV SCH (03:51)
[2017-09-01 06:09] LABS: CHLORIDE,CL 105 mmol/L (98-110); SODIUM,NA 138 mmol/L (136-146)
[2017-09-01] MEDS: Gabapentin 300 MG Cap PO SCH ×2 (06:30→14:22)
[2017-09-01] MEDS ORDERED: Omeprazole 20 MG Cap.CR PO SCH (07:30)
[2017-09-01] MEDS ORDERED: Levothyroxine 50 MCG Tab PO SCH (07:30)
[2017-09-01] MEDS: Enoxaparin 40 MG/0.4 ML Syringe SUBCUT SCH (08:36)
--- NOTE | 2017-09-01 08:39 | PCM.DCSUM1 ---
Discharge Summary - Hospital Course HPI Initial Comments: 52-year-old female admitted 08/31/27 for hyperglycemia and suspected community acquired pneumonia with past medical history of hypertension, type 2 diabetes, GERD, depression, and migraine. Brief History: Patient stated that for the past 2 weeks she'd had worsening coughing with production of brown to reddish tinged sputum. She believed it has been getting worse and reported some associated fever and chills. She recently was diagnosed with influenza A. She also was taking ciprofloxacin for a suspected urinary tract infection. Her primary reason for coming into the emergency department was that her headache was so bad and the cough was just making it worse. She complained of some nasal congestion as well. She denies any nausea, vomiting, diarrhea, chest pain, palpitations, syncopal episodes or new focal neurologic deficits. She does not have a history of asthma but did state that the DuoNeb she received in emergency department helped. 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 Qualified Code(s): E11.65 - Type 2 diabetes mellitus with hyperglycemia (2) Community acquired pneumonia SNOMED Code(s): 444677393 ICD Code: J18.9 - PNEUMONIA, UNSPECIFIED ORGANISM Status: Suspected Priority: Medium Current Visit: Yes Qualifiers: Laterality: unspecified laterality Qualified Code(s): J18.9 - Pneumonia, unspecified organism (3) Hypertension SNOMED Code(s): 09476532 ICD Code: I10 - ESSENTIAL (PRIMARY) HYPERTENSION Status: Chronic Priority : Medium Current Visit: Yes Qualifiers: Hypertension type: essential hypertension Qualified Code(s): I10 - Essential (primary) hypertension (4) Hypothyroidism SNOMED Code(s): 84617540 ICD Code: E03.9 - HYPOTHYROIDISM, UNSPECIFIED Status: Chronic Priority: Medium Current Visit: Yes Qualifiers: Hypothyroidism type: unspecified Qualified Code(s): E03.9 - Hypothyroidism , unspecified - Patient Instructions Diet: Heart Healthy Diet Activity: Rest and Relax Today Driving: Do Not Drive Showering/Bathing: November Shower Notify Provider of: Fever, Increased Pain, Nausea and/or Vomiting - Discharge Plan Prescriptions/Med Rec: Oxymetazoline [Afrin Original 0.05% Nasal [place]] 0 ml MELINDA Q12HR PRN #1 bottle PRN Reason: Congestion Fluticasone Propionate [Flonase] 0 gm NASBOTH BID #1 bottle Levofloxacin [Levaquin] 750 mg PO Q48H #3 tab Home Medications: Home Meds Albuterol [Proair HFA] 8.5 gm IH ASDIRECTED 08/31/17 [History] DULoxetine HCl [Cymbalta] 60 mg PO DAILY 08/31/17 [History] DULoxetine [Cymbalta] 30 mg PO DAILY 08/31/17 [History] Gabapentin [Neurontin] 300 mg PO TID 08/31/17 [History] Levothyroxine [Synthroid] 50 mcg PO ACBREAKFAST 08/31/17 [History] Lisinopril [Prinivil] 5 mg PO DAILY 08/31/17 [History] Omeprazole 20 mg PO DAILY 08/31/17 [History] Potassium Chloride 1 tab PO DAILY 08/31/17 [History] QUEtiapine Fumarate [Quetiapine Fumarate ER] 1.5 tab PO DAILY 08/31/17 [History] Topiramate [Trokendi Xr] 100 mg PO DAILY 08/31/17 [History] atorvaSTATin [Lipitor] 40 mg PO BEDTIME 08/31/17 [History] lamoTRIgine [Lamictal XR] 200 mg PO DAILY 08/31/17 [History] metFORMIN [Glucophage XR] 1,000 mg PO DAILY 08/31/17 [History] Fluticasone Propionate [Flonase] 0 gm NASBOTH BID #1 bottle 09/01/17 [Rx] Levofloxacin [Levaquin] 750 mg PO Q48H #3 tab 09/01/17 [Rx] Oxymetazoline [Afrin Original 0.05% Nasal [place]] 0 ml MELINDA Q12HR PRN #1 bottle [Rx] Forms: ED Department Discharge Referrals: PCP,None [Primary Care Provider] - - Discharge Summary/Plan Comment DC Time >30 min.: Yes Discharge Summary/Plan Comment: 52-year-old female admitted 08/31/27 for hyperglycemia and suspected community acquired pneumonia with past medical history of hypertension, type 2 diabetes, GERD, depression, and migraine. Patient stated that for the past 2 weeks she'd had worsening coughing with production of brown to reddish tinged sputum. She believed it has been getting worse and reported some associated fever and chills. She recently was diagnosed with influenza A. She also was taking ciprofloxacin for a suspected urinary tract infection. Her primary reason for coming into the emergency department was that her headache was so bad and the cough was just making it worse. She complained of some nasal congestion as well. She denies any nausea, vomiting, diarrhea, chest pain, palpitations, syncopal episodes or new focal neurologic deficits. She does not have a history of asthma but did state that the DuoNeb she received in emergency department helped. In the emergency department: She had mild leukocytosis of 13.3 1K, hyperglycemia 509, normal stable vital signs. She was given Tylenol with codeine, 1 DuoNeb, 0.5 mg hydromorphone 2 and 10 units of insulin. She also was given 1 L bolus of LR, and 4 mg Zofran. Chest x-ray was unremarkable. Patient was admitted for hyperglycemia and possible pneumonia. She was treated with Levaquin for suspected acquired pneumonia as well as IV fluid replacement for dehydration which also resolved her migraine. In addition she was given Flonase and Afrin which helped relieve some of her symptomatic upper respiratory congestion. On second admission patient had improved dramatically and was wishing to be discharged home. She was discharged in good condition with follow-up with a primary care physician, she did not have previously to admission. She was also instructed to take her blood sugar 3 times daily and adjust doses as per sliding scale states. She was given a prescription for Levaquin for suspected community acquired pneumonia, Flonase, and Afrin for upper respiratory congestion. - General Info Date of Service: 09/01/17 Admission Dx/Problem (Free Text: Admission Diagnosis/Problem Admission Diagnosis/Problem Pneumonia Subjective Update: Doing well this morning. Migraine has been completely resolved. Coughing and congestion improved dramatically with Flonase, Afrin, and Tessalon Perles. Is wishing to go home if she is able today. Functional Status: Reports: Pain Controlled, Tolerating Diet, Ambulating, Urinating - Review of Systems General: Denies: Fever, Weakness, Fatigue, Malaise, Chills HEENT: Denies: Headaches, Visual Changes Pulmonary: Denies: Shortness of Breath, Pleuritic Chest Pain, Cough, Sputum Cardiovascular: Denies: Chest Pain, Palpitations Gastrointestinal: Denies: Abdominal Pain, Nausea, Vomiting Genitourinary: Denies: Dysuria, Hematuria Musculoskeletal: Denies: Neck Pain, Leg Pain Skin: Denies: Cyanosis Neurological: Denies: Confusion, Dizziness, Headache Psychiatric: Denies: Confusion - Patient Data Vitals - Most Recent: Last Vital Signs Temp 96.9 F 09/01/17 03:33 Pulse 56 L 09/01/17 03:33 Resp 18 09/01/17 03:33 BP 114/70 09/01/17 08:35 Pulse Ox 100 09/01/17 03:33 Weight - Most Recent: 73.028 kg I&O - Last 24 hours: Intake & Output 08/31/17 09/01/17 09/01/17 22:59 06:59 14:59 Intake Total 1557 Output Total 1000 Balance 557 Lab Results - Last 24 hrs: Laboratory Results - last 24 hr 09/01/17 09/01/17 09/01/17 Range/Units 05:20 05:20 06:34 WBC 10.85 (4.0-11.0) K/uL RBC 4.14 L (4.30-5.90) M/uL Hgb 11.2 L (12.0-16.0) g/dL Hct 35.4 L (36.0-46.0) % MCV 85.5 (80.0-98.0) fL MCH 27.1 (27.0-32.0) pg MCHC 31.6 (31.0-37.0) g/dL RDW Std Deviation 42.8 (28.0-62.0) fl RDW Coeff of [place] 14 (11.0-15.0) % Plt Count 349 (150-400) K/uL MPV 8.80 (7.40-12.00) fL Neut % (Auto) 57.9 (48.0-80.0) % Lymph % (Auto) 33.7 (16.0-40.0) % [place] % (Auto) 6.2 (0.0-15.0) % Eos % (Auto) 1.9 (0.0-7.0) % Baso % (Auto) 0.3 (0.0-1.5) % Neut # (Auto) 6.3 H (1.4-5.7) K/uL Lymph # (Auto) 3.7 H (0.6-2.4) K/uL [place] # (Auto) 0.7 (0.0-0.8) K/uL Eos # (Auto) 0.2 (0.0-0.7) K/uL Baso # (Auto) 0.0 (0.0-0.1) K/uL Nucleated RBC % 0.0 /100WBC Nucleated RBCs # 0 K/uL Sodium 138 (136-146) mmol/L Potassium 4.7 (3.5-5.1) mmol/L Chloride 105 (98-110) mmol/L Carbon Dioxide 27 (21-31) mmol/L BUN 9 (6.0-23.0) mg/dL Creatinine 0.8 (0.6-1.5) mg/dL Est Cr Clr Drug Dosing 66.54 mL/min Estimated GFR (MDRD) > 60.0 ml/min Glucose 264 H (60-110) mg/dL POC Glucose 239 H (60-110) mg/dL Calcium 9.2 (8.8-10.8) mg/dL 09/01/17 Range/Units 08:28 WBC (4.0-11.0) K/uL RBC (4.30-5.90) M/uL Hgb (12.0-16.0) g/dL Hct (36.0-46.0) % MCV (80.0-98.0) fL MCH (27.0-32.0) pg MCHC (31.0-37.0) g/dL RDW Std Deviation (28.0-62.0) fl RDW Coeff of Hunter (11.0-15.0) % Plt Count (150-400) K/uL MPV (7.40-12.00) fL Neut % (Auto) (48.0-80.0) % Lymph % (Auto) (16.0-40.0) % [place] % (Auto) (0.0-15.0) % Eos % (Auto) (0.0-7.0) % Baso % (Auto) (0.0-1.5) % Neut # (Auto) (1.4-5.7) K/uL Lymph # (Auto) (0.6-2.4) K/uL [place] # (Auto) (0.0-0.8) K/uL Eos # (Auto) (0.0-0.7) K/uL Baso # (Auto) (0.0-0.1) K/uL Nucleated RBC % /100WBC Nucleated RBCs # K/uL Sodium (136-146) mmol/L Potassium (3.5-5.1) mmol/L Chloride (98-110) mmol/L Carbon Dioxide (21-31) mmol/L BUN (6.0-23.0) mg/dL Creatinine (0.6-1.5) mg/dL Est Cr Clr Drug Dosing mL/min Estimated GFR (MDRD) ml/min Glucose (60-110) mg/dL POC Glucose 251 H (60-110) mg/dL Calcium (8.8-10.8) mg/dL Med Orders - Current: Current Medications Acetaminophen (Tylenol) 650 mg PO Q4H PRN PRN Reason: Pain (Mild 1-3)/fever Albuterol/Ipratropium (Duoneb 3.0-0.5 Mg/3 Ml) 3 ml NEB Q6HRRT PRN PRN Reason: Shortness Of Breath/wheezing Atorvastatin Calcium (Lipitor) 40 mg PO BEDTIME [facility] Last Admin: 08/31/17 21:28 Dose: 40 mg Duloxetine HCl (Cymbalta) 90 mg PO DAILY [facility] Last Admin: 09/01/17 08:35 Dose: 90 mg Enoxaparin Sodium (Lovenox) 40 mg SUBCUT DAILY [facility] Last Admin: 09/01/17 08:36 Dose: 40 mg Fluticasone Propionate (Flonase) 0 gm NASBOTH BID [facility] Last Admin: 08/31/17 21:26 Dose: 1 spray Gabapentin (Neurontin) 300 mg PO TID [facility] Last Admin: 09/01/17 06:30 Dose: 300 mg Hydromorphone HCl (Dilaudid) 0.5 mg IVPUSH Q2H PRN PRN Reason: Pain (severe 7-10) Last Admin: 08/31/17 21:26 Dose: 0.5 mg Lactated Ringer's (Ringers, Lactated) 1,000 mls @ 125 mls/hr IV ASDIRECTED [facility] Last Admin: 09/01/17 03:51 Dose: 125 mls/hr Levofloxacin/Dextrose 750 mg/ (Premix) 150 mls @ 100 mls/hr IV Q48H [facility] Insulin Aspart (Novolog) 0 unit SUBCUT TIDAC ALL PRN Reason: Protocol Levothyroxine Sodium (Synthroid) 50 mcg PO ACBREAKFAST [facility] Last Admin: 09/01/17 06:30 Dose: 50 mcg Lisinopril (Prinivil) 5 mg PO DAILY [facility] Last Admin: 09/01/17 08:35 Dose: 5 mg Omeprazole (Omeprazole) 20 mg PO ACBRK [facility] Last Admin: 09/01/17 06:30 Dose: 20 mg Ondansetron HCl (Zofran Odt) 4 mg PO Q4H PRN PRN Reason: nausea, able to take PO Ondansetron HCl (Zofran) 4 mg IVPUSH Q4H PRN PRN Reason: Nausea Last Admin: 08/31/17 21:28 Dose: 4 mg Oxymetazoline HCl (Afrin Original 0.05% Nasal [place]) 0 ml MELINDA Q12HR PRN PRN Reason: Congestion Sodium Chloride (Saline Flush) 10 ml FLUSH ASDIRECTED PRN PRN Reason: Keep Vein Open Sodium Chloride (Saline Flush) 2.5 ml FLUSH ASDIRECTED PRN PRN Reason: Keep Vein Open Temazepam (Restoril) 15 mg PO BEDTIME PRN PRN Reason: Sleep Last Admin: 09/01/17 02:40 Dose: 15 mg Discontinued Medications Acetaminophen/Codeine Phosphate (Tylenol With Codeine No.3 300mg/30mg) 2 tab PO ONETIME ONE Stop: 08/31/17 14:48 Last Admin: 08/31/17 15:01 Dose: 2 tab Albuterol/Ipratropium (Duoneb 3.0-0.5 Mg/3 Ml) 3 ml NEB ONETIME ONE Stop: 08/31/17 14:41 Last Admin: 08/31/17 15:18 Dose: 3 ml Duloxetine HCl (Cymbalta) 60 mg PO DAILY [facility] Hydromorphone HCl (Dilaudid) 0.5 mg IVPUSH Q1H PRN PRN Reason: Pain Last Admin: 08/31/17 16:06 Dose: 0.5 mg Lactated Ringer's (Ringers, Lactated) 1,000 mls @ 999 mls/hr IV .BOLUS ONE Stop: 08/31/17 16:57 Last Admin: 08/31/17 16:03 Dose: 999 mls/hr Levofloxacin/Dextrose 750 mg/ (Premix) 150 mls @ 100 mls/hr IV Q24H ALL Last Admin: 08/31/17 18:44 Dose: 100 mls/hr Insulin Human Regular (Novolin R) 10 unit IVPUSH ONETIME ONE PRN Reason: Protocol Stop: 08/31/17 15:30 Last Admin: 08/31/17 15:47 Dose: 10 units Ondansetron HCl (Zofran) 4 mg IVPUSH ONETIME ONE Stop: 08/31/17 14:41 Last Admin: 08/31/17 14:58 Dose: 4 mg - Exam Quality Assessment: Reports: DVT Prophylaxis General: Reports: Alert, Oriented, Cooperative, No Acute Distress HEENT: Reports: Pupils Equal, Pupils Reactive, EOMI, Mucous Membr. Moist/[place]: Reports: Supple, Trachea Midline, No JVD Lungs: Reports: Clear to Auscultation, Normal Respiratory Effort Cardiovascular: Reports: Regular Rate, Regular Rhythm GI/Abdominal Exam: Normal Bowel Sounds, Soft, Non-Tender, No Organomegaly, No Distention (Female) Exam: Deferred Back Exam: Reports: Normal Inspection Extremities: Normal Inspection, Non-Tender, No Pedal Edema, Normal Capillary Refill Skin: Reports: Warm, Dry, Intact Neurological: Reports: No New Focal Deficit Psy/Mental Status: Reports: Alert, Normal Affect, Normal Mood *Q Meaningful Use (DIS) - VTE *Q VTE Criteria *Q: - Stroke *Q Stroke Criteria *Q: - AMI *Q AMI Criteria *Q:
[2017-09-01] MEDS: Insulin Aspart 100 Units/ML 3 ML Pen SUBCUT SCH ×2 (08:41→12:47)
[2017-09-01] MEDS: Fluticasone Propionate Nasal Spray 16 GM Bottle NASBOTH SCH (08:43)
[2017-09-01] MEDS ORDERED: DULoxetine 60 MG Cap PO SCH (09:00)
[2017-09-01] MEDS ORDERED: DULoxetine 30 MG Cap PO SCH (09:00)
[2017-09-01] MEDS ORDERED: Lisinopril 5 MG Tab PO SCH (09:00)
[2017-09-01] MEDS: HYDROmorphone 1 MG/ML Syringe IVPUSH PRN (11:57)
--- NOTE | 2017-09-02 12:47 | CR ---
EXAM DATE: 08/31/17 PATIENT'S AGE: 52 Patient: FARZANA GARSIA Facility: [place], [place] Site . Site : 1965 Study: XRay Chest [id number]/10/2018 3:43:24 PM Ordering Physician: Sang Washburn Final Report: HISTORY: Pain and shortness of breath. COMPARISON: 08/22/2017. FINDINGS: The lungs are clear. Costophrenic angles sharp. Heart size and pulmonary vascularity are within normal limits. Dictated by Kirsten Haskins MD @ Aug 31 2017 3:44PM (Electronic Signature) Report Signed by Proxy. CHATA
[2017-09-02] MEDS ORDERED: Levofloxacin/Dextrose 5%-Water 750 MG in Premix Bag 1 BAG IV SCH (18:00)
== END 2017-09-01 14:20 | disposition home or self-care (01) ==
LOC: MW.ED 14:18 → MW.MS 17:31
PROVIDERS: ADMIT Family Medicine; ATTEND Family Medicine
DX: J18.9 Pneumonia, unspecified organism (principal); E11.65 Type 2 diabetes mellitus with hyperglycemia; I10 Essential (primary) hypertension; K21.9 Gastro-esophageal reflux disease without esophagitis; F32.9 Major depressive disorder, single episode, unspecified; G43.909 Migraine, unspecified, not intractable, without status migrainosus; E03.9 Hypothyroidism, unspecified; E86.0 Dehydration; Z88.8 Allergy status to other drugs, medicaments and biological substances; Z79.899 Other long term (current) drug therapy; Z79.84 Long term (current) use of oral hypoglycemic drugs; Z79.51 Long term (current) use of inhaled steroids; Z91.018 Allergy to other foods; Z90.710 Acquired absence of both cervix and uterus
CPT/HCPCS: 36415; 71046; 80048; 80053; 82962; 85025; 94640; 96361; 96374; 96375; 96376; 99285; A9270; J1170; J1650; J1815; J1956; J2405; J7120; 96372; 99283; G0378

== ENCOUNTER 2017-12-14 22:01 | Emergency (ER) | payer BC ==
--- NOTE | 2017-12-14 22:07 | EDM.PDOC ---
ED HPI GENERAL MEDICAL PROBLEM - General Chief Complaint: Neurological Problem Stated Complaint: FALL/HIT HEAD Time Seen by Provider: 12/14/17 22:07 Source of Information: Reports: Patient - History of Present Illness INITIAL COMMENTS - FREE TEXT/NARRATIVE: HISTORY AND PHYSICAL: History of present illness: []Presents post fall at the [facility], she slipped falling backwards striking her occiput on the floor states she had brief loss of consciousness awoke to her helping her up She also complains of some neck pain on the right side consistent with muscle spasm No fever nausea vomiting chills sweats no chest pain shortness breath headache dizziness palpitation no bowel or urine symptoms Review of systems: As per history of present illness and below otherwise all systems reviewed and negative. Past medical history: As per history of present illness and as reviewed below otherwise noncontributory. Surgical history: As per history of present illness and as reviewed below otherwise noncontributory. Social history: No reported history of drug or alcohol abuse. Family history: As per history of present illness and as reviewed below otherwise noncontributory. Physical exam: HEENT: Atraumatic, normocephalic, pupils reactive, negative for conjunctival pallor or scleral icterus, mucous membranes moist, throat clear, neck supple, nontender, trachea midline. Lungs: Clear to auscultation, breath sounds equal bilaterally, chest nontender. Heart: S1S2, regular, negative for clicks, rubs, or JVD. Abdomen: Soft, nondistended, nontender. Negative for masses or hepatosplenomegaly. Negative for costovertebral tenderness. Pelvis: Stable nontender. Genitourinary: Deferred. Rectal: Deferred. Extremities: Atraumatic, negative for cords or calf pain. Neurovascular unremarkable. Neuro: Awake, alert, oriented. Cranial nerves II through XII unremarkable. Cerebellum unremarkable. Motor and sensory unremarkable throughout. Exam nonfocal. Diagnostics: [CT head no contrast Cervical spine no contrast ] Therapeutics: [Toradol 60 IM Toradol 10 mg by mouth 3 times a day when necessary number 15 no refill ] Lexapro 10 mg by mouth 3 times a day when necessary #30 no refill Impression: [Concussion with loss of consciousness ]Muscle spasm right SCM and trapezius distribution Definitive disposition and diagnosis as appropriate pending reevaluation and review of above. Head Pain Score (Numeric/FACES): 7 - Related Data Allergies Allergy/AdvReac Type Severity Reaction Status Date / Time broccoli Allergy Abdominal Verified 12/14/17 22:11 Pain metoclopramide [From Reglan] Allergy Anaphylactic Verified 12/14/17 22:11 Shock Home Meds: Home Meds Albuterol [Proair HFA] 8.5 gm IH ASDIRECTED 08/31/17 [History] DULoxetine HCl [Cymbalta] 60 mg PO DAILY 08/31/17 [History] DULoxetine [Cymbalta] 30 mg PO DAILY 08/31/17 [History] Gabapentin [Neurontin] 300 mg PO TID 08/31/17 [History] Levothyroxine [Synthroid] 50 mcg PO ACBREAKFAST 08/31/17 [History] Lisinopril [Prinivil] 5 mg PO DAILY 08/31/17 [History] Omeprazole 20 mg PO DAILY 08/31/17 [History] Potassium Chloride 10 meq PO DAILY 08/31/17 [History] QUEtiapine Fumarate [Quetiapine Fumarate ER] 600 mg PO DAILY 08/31/17 [History] Topiramate [Trokendi Xr] 100 mg PO DAILY 08/31/17 [History] atorvaSTATin [Lipitor] 40 mg PO BEDTIME 08/31/17 [History] lamoTRIgine [Lamictal XR] 200 mg PO DAILY 08/31/17 [History] metFORMIN [Glucophage XR] 1,500 mg PO DAILY 08/31/17 [History] Fluticasone Propionate [Flonase] 0 gm NASBOTH BID #1 bottle 09/01/17 [Rx] Levofloxacin [Levaquin] 750 mg PO Q48H #3 tab 09/01/17 [Rx] Oxymetazoline [Afrin Original 0.05% Nasal [place]] 0 ml MELINDA Q12HR PRN #1 bottle [Rx] Aspirin [Adult Aspirin] 81 mg PO DAILY 12/14/17 [History] Past Medical History - Past Health History Medical/Surgical History: Denies Medical/Surgical History HEENT History: Reports: Impaired Vision Cardiovascular History: Reports: Hypertension Psychiatric History: Reports: Depression Endocrine/Metabolic History: Reports: Diabetes, Type II - Infectious Disease History Infectious Disease History: Reports: Chicken Pox - Past Surgical History Female Surgical History: Reports: Hysterectomy Social & Family History - Family History Family Medical History: Noncontributory - Caffeine Use Caffeine Use: Reports: Tea ED ROS GENERAL - Review of Systems Review Of Systems: See Below ED EXAM, GENERAL - Physical Exam Exam: See Below Course - Vital Signs Last Recorded V/S: Last Vital Signs Temp 97.3 F 12/14/17 22:06 Pulse 72 12/14/17 22:46 Resp 18 12/14/17 22:46 BP 157/107 H 12/14/17 22:46 Pulse Ox 96 12/14/17 22:46 - Orders/Labs/Meds Orders: Active Orders 24 hr Category Date Time Status Cervical Spine wo Cont [CT] Stat Exams 12/14/17 22:06 Taken Head wo Cont [CT] Stat Exams 12/14/17 22:06 Taken Meds: Medications Discontinued Medications Generic Name Dose Route Start Last Admin Trade Name Eugenioq PRN Reason Stop Dose Admin Ketorolac Tromethamine 60 mg 12/14/17 23:33 Toradol IM 12/14/17 23:34 ONETIME ONE Departure - Departure Time of Disposition: 23:41 Disposition: Home, Self-Care 01 Condition: Good Clinical Impression: Concussion, Muscle spasm - Discharge Information Instructions: Head Injury, Adult Referrals: PCP,None [Primary Care Provider] - Forms: ED Department Discharge Additional Instructions: Medication as prescribed Return if symptoms persist or worsen or new concerning symptoms develop Follow-up with primary care 2 weeks sooner as needed [facility] - Primary Care [address] [place], [place] [id number] The following information is given to patients seen in the emergency department who are being discharged to home. This information is to outline your options for follow-up care. We provide all patients seen in our emergency department with a follow-up referral. The need for follow-up, as well as the timing and circumstances, are variable depending upon the specifics of your emergency department visit. If you don't have a primary care physician on staff, we will provide you with a referral. We always advise you to contact your personal physician following an emergency department visit to inform them of the circumstance of the visit and for follow-up with them and/or the need for any referrals to a consulting specialist. The emergency department will also refer you to a specialist when appropriate. This referral assures that you have the opportunity for follow-up care with a specialist. All of these measure are taken in an effort to provide you with optimal care, which includes your follow-up. Under all circumstances we always encourage you to contact your private physician who remains a resource for coordinating your care. When calling for follow-up care, please make the office aware that this follow-up is from your recent emergency room visit. If for any reason you are refused follow-up, please contact the [facility] emergency department at and asked to speak to the emergency department charge nurse. - My Orders Last 24 Hours: My Active Orders 12/14/17 22:06 Cervical Spine wo Cont [CT] Stat Head wo Cont [CT] Stat - Assessment/Plan Last 24 Hours: My Active Orders 12/14/17 22:06 Cervical Spine wo Cont [CT] Stat Head wo Cont [CT] Stat
[2017-12-14] MEDS ORDERED: Ketorolac 60 MG/2 ML SDV IM ONE (23:33)
--- NOTE | 2017-12-17 10:13 | CT ---
EXAM DATE: 12/14/17 PATIENT'S AGE: 52 Patient: FARZANA DELGADO Facility: [place], [place] Site . Site : 1965 Study: CT Head [id number]/26/2018 10:35:58 PM Ordering Physician: Gill Krishnamurthy Final Report: INDICATION: Fall tonight at [facility] with headaches since injury. TECHNIQUE: CT head without i.v. contrast. COMPARISON: None FINDINGS: CSF spaces: Within normal limits for age. Brain parenchyma: The brain parenchyma is normal in appearance with preservation of the syed-white differentiation. No sign of mass, hemorrhage, or midline shift seen. Skull base and calvarium: The visualized paranasal sinuses are well aerated. The mastoid air cells are clear. The visualized orbits are grossly unremarkable. No skull fractures are seen. IMPRESSION: 1. No evidence of acute infarction, intracranial hemorrhage, or mass effect seen. Dictated by Farooq Greene MD @ 12/14/2017 11:27:25 PM Please note that all CT scans at this facility use dose modulation, iterative reconstruction, and/or weight-based dosing when appropriate to reduce radiation dose to as low as reasonably achievable. Dictated by: Farooq Greene MD @ 12/14/2017 23:27:32 (Electronic Signature) Report Signed by Proxy. MTDAustin
--- NOTE | 2017-12-17 10:14 | CT ---
EXAM DATE: 12/14/17 PATIENT'S AGE: 52 Patient: FARZANA DELGADO Facility: [place], [place] Site . Site : 1965 Study: CT Spine Cervical [id number]/26/2018 10:36:14 PM Ordering Physician: Gill Krishnamurthy Final Report: INDICATION: Fall tonight at [facility] with headache since injury. TECHNIQUE: CT cervical spine without i.v. contrast. Coronal and sagittal reformats were obtained. COMPARISON: None FINDINGS: Vertebral alignment: Alignment is normal. Vertebrae: No acute fractures or aggressive osseous lesions are identified. Discs and facet joints: Disc spaces are within normal limits. The facet joints are unremarkable in appearance. Extraspinal findings: Scarring with coarse calcification at the left lung apex. Moderate calcified plaque at the bilateral carotid bifurcations. IMPRESSION: 1. No acute cervical spine fracture or abnormal subluxation injury. Dictated by Farooq Greene MD @ 12/14/2017 11:31:42 PM Please note that all CT scans at this facility use dose modulation, iterative reconstruction, and/or weight-based dosing when appropriate to reduce radiation dose to as low as reasonably achievable. Dictated by: Farooq Greene MD @ 12/14/2017 23:31:47 (Electronic Signature) Report Signed by Proxy. [facility]Austin
== END 2017-12-14 23:57 | disposition home or self-care (01) ==
LOC: MW.ED 22:01
DX: S06.0X9A Concussion with loss of consciousness of unspecified duration, initial encounter (principal); M54.2 Cervicalgia; M62.838 Other muscle spasm; I10 Essential (primary) hypertension; E11.9 Type 2 diabetes mellitus without complications; W01.198A Fall on same level from slipping, tripping and stumbling with subsequent striking against other object, initial encounter; Z91.018 Allergy to other foods; Z88.8 Allergy status to other drugs, medicaments and biological substances; Z79.84 Long term (current) use of oral hypoglycemic drugs; Z79.899 Other long term (current) drug therapy
CPT/HCPCS: 70450; 72125; 96372; 99283; J1885

== ENCOUNTER 2018-01-24 18:49 | Emergency (ER) | payer BC ==
--- NOTE | 2018-01-24 19:02 | EDM.PDOC ---
ED HPI GENERAL MEDICAL PROBLEM - General Chief Complaint: Respiratory Problem Stated Complaint: SEVERE COUGH Time Seen by Provider: 01/24/18 19:01 Source of Information: Reports: Patient History Limitations: Reports: No Limitations - History of Present Illness INITIAL COMMENTS - FREE TEXT/NARRATIVE: HISTORY AND PHYSICAL: History of present illness: 52-year-old female presenting to emergency department with chief complaint of migraine headache, coughing, and runny nose 6 months with past medical history of hypertension, type 2 diabetes, GERD, migraine, and depression. Patient has presented to the emergency department before for similar complaint and has been hospitalized in [facility] for CAP. She has also been seen by Dr. Gomez as well as Dr. Platt who had been treating her for allergies. Dr. Gomez has mentioned that she would benefit from surgery. Patient states that today her coughing has become so severe that it hurts in her chest. She has had some associated nausea with the coughing and states that his gagging her. She is taking nothing for the cough. States that she has been compliant with her medications from Dr. Gomez and Dr. platt. States that secondary to cough she is also having a migraine headache. States that she has felt somewhat feverish but no chills. Currently denies any chest pain, palpitations, shortness breath, syncopal episodes, or focal neurologic deficits. CBC and chest x-ray were unremarkable. CMP unremarkable Review of systems: As per history of present illness and below otherwise all systems reviewed and negative. Past medical history: As per history of present illness and as reviewed below otherwise noncontributory. Surgical history: As per history of present illness and as reviewed below otherwise noncontributory. Social history: No reported history of drug or alcohol abuse. Family history: As per history of present illness and as reviewed below otherwise noncontributory. Physical exam: HEENT: Atraumatic, normocephalic, pupils reactive, negative for conjunctival pallor or scleral icterus, mucous membranes moist, throat clear, neck supple, nontender, trachea midline. Lungs: Clear to auscultation, breath sounds equal bilaterally, chest nontender. Heart: S1S2, regular, negative for clicks, rubs, or JVD. Abdomen: Soft, nondistended, nontender. Negative for masses or hepatosplenomegaly. Negative for costovertebral tenderness. Pelvis: Stable nontender. Genitourinary: Deferred. Rectal: Deferred. Extremities: Atraumatic, negative for cords or calf pain. Neurovascular unremarkable. Neuro: Awake, alert, oriented. Cranial nerves II through XII unremarkable. Cerebellum unremarkable. Motor and sensory unremarkable throughout. Exam nonfocal. Diagnostics: CBC,CMP,CXR Therapeutics: 1 L NS, 1 Dilaudid IV, Z-Gerry 1, Tessalon Perles 20 mg by mouth 3 times a day # 12 Impression: Bronchitis Recurrent cough Seasonal allergies Plan: CBC, CMP, and chest x-ray were unremarkable. Patient most likely has seasonal type allergies which has been being treated ear, nose and throat by Dr. Gomez however secondary to a persistent cough over 4 weeks I will treat her for bronchitis. Did give her a Z-Gerry as well as a prescription for Tessalon Perles. She was given follow-up with primary care provider early next week. I also instructed her to use her home albuterol every 4-6 hours through the weekend. Definitive disposition and diagnosis as appropriate pending reevaluation and review of above. HEadache Pain Score (Numeric/FACES): 9 - Related Data Allergies Allergy/AdvReac Type Severity Reaction Status Date / Time broccoli Allergy Abdominal Verified 01/24/18 19:15 Pain metoclopramide [From Reglan] Allergy Anaphylactic Verified 01/24/18 19:15 Shock Home Meds: Home Meds Albuterol [Proair HFA] 8.5 gm IH ASDIRECTED 08/31/17 [History] DULoxetine HCl [Cymbalta] 60 mg PO DAILY 08/31/17 [History] DULoxetine [Cymbalta] 30 mg PO DAILY 08/31/17 [History] Gabapentin [Neurontin] 300 mg PO TID 08/31/17 [History] Levothyroxine [Synthroid] 50 mcg PO ACBREAKFAST 08/31/17 [History] Lisinopril [Prinivil] 5 mg PO DAILY 08/31/17 [History] Omeprazole 20 mg PO DAILY 08/31/17 [History] Potassium Chloride 10 meq PO DAILY 08/31/17 [History] QUEtiapine Fumarate [Quetiapine Fumarate ER] 600 mg PO DAILY 08/31/17 [History] Topiramate [Trokendi Xr] 100 mg PO DAILY 08/31/17 [History] atorvaSTATin [Lipitor] 40 mg PO BEDTIME 08/31/17 [History] lamoTRIgine [Lamictal XR] 200 mg PO DAILY 08/31/17 [History] metFORMIN [Glucophage XR] 1,500 mg PO DAILY 08/31/17 [History] Fluticasone Propionate [Flonase] 0 gm NASBOTH BID #1 bottle 09/01/17 [Rx] Levofloxacin [Levaquin] 750 mg PO Q48H #3 tab 09/01/17 [Rx] Oxymetazoline [Afrin Original 0.05% Nasal [place]] 0 ml MELINDA Q12HR PRN #1 bottle [Rx] Aspirin [Adult Aspirin] 81 mg PO DAILY 12/14/17 [History] Past Medical History - Past Health History Medical/Surgical History: Denies Medical/Surgical History HEENT History: Reports: Impaired Vision Cardiovascular History: Reports: Hypertension Psychiatric History: Reports: Depression Endocrine/Metabolic History: Reports: Diabetes, Type II - Infectious Disease History Infectious Disease History: Reports: Chicken Pox - Past Surgical History Female Surgical History: Reports: Hysterectomy Social & Family History - Family History Family Medical History: Noncontributory - Caffeine Use Caffeine Use: Reports: Tea ED ROS GENERAL - Review of Systems Review Of Systems: ROS reveals no pertinent complaints other than HPI. ED EXAM, GENERAL - Physical Exam Exam: See Below Course - Vital Signs Last Recorded V/S: Last Vital Signs Temp 96.8 F 01/24/18 19:13 Pulse 65 01/24/18 20:26 Resp 12 01/24/18 20:26 BP 137/71 01/24/18 20:26 Pulse Ox 94 L 01/24/18 20:26 - Orders/Labs/Meds Orders: Active Orders 24 hr Category Date Time Status CXR [Chest 2V] [CR] Stat Exams 01/24/18 19:14 Taken CULTURE STREP A CONFIRMATION [] Stat Lab 01/24/18 19:40 Results INFLUENZA A+B AG SCREEN [] Stat Lab 01/24/18 20:10 Ordered STREP SCRN A RAPID W CULT CONF [] Stat Lab 01/24/18 19:40 Ordered Labs: Laboratory Tests 01/24/18 01/24/18 Range/Units 19:30 19:30 WBC 8.24 (4.0-11.0) K/uL RBC 4.58 (4.30-5.90) M/uL Hgb 11.8 L (12.0-16.0) g/dL Hct 36.6 (36.0-46.0) % MCV 79.9 L (80.0-98.0) fL MCH 25.8 L (27.0-32.0) pg MCHC 32.2 (31.0-37.0) g/dL RDW Std Deviation 41.8 (28.0-62.0) fl RDW Coeff of [place] 15 (11.0-15.0) % Plt Count 304 (150-400) K/uL MPV 9.00 (7.40-12.00) fL Neut % (Auto) 50.6 (48.0-80.0) % Lymph % (Auto) 38.7 (16.0-40.0) % [place] % (Auto) 7.8 (0.0-15.0) % Eos % (Auto) 2.7 (0.0-7.0) % Baso % (Auto) 0.2 (0.0-1.5) % Neut # (Auto) 4.2 (1.4-5.7) K/uL Lymph # (Auto) 3.2 H (0.6-2.4) K/uL [place] # (Auto) 0.6 (0.0-0.8) K/uL Eos # (Auto) 0.2 (0.0-0.7) K/uL Baso # (Auto) 0.0 (0.0-0.1) K/uL Nucleated RBC % 0.0 /100WBC Nucleated RBCs # 0 K/uL Sodium 139 (136-145) mmol/L Potassium 3.9 (3.5-5.1) mmol/L Chloride 104 (98-107) mmol/L Carbon Dioxide 23.9 (21.0-32.0) mmol/L BUN 12 (7.0-18.0) mg/dL Creatinine 0.9 (0.6-1.0) mg/dL Est Cr Clr Drug Dosing 59.15 mL/min Estimated GFR (MDRD) > 60.0 ml/min Glucose 177 H (74-106) mg/dL Calcium 9.0 (8.5-10.1) mg/dL Total Bilirubin 0.2 (0.2-1.0) mg/dL AST 12 L (15-37) IU/L ALT 17 (14-63) IU/L Alkaline Phosphatase 101 (46-116) U/L Total Protein 7.4 (6.4-8.2) g/dL Albumin 3.4 (3.4-5.0) g/dL Globulin 4.0 H (2.0-3.5) g/dL Albumin/Globulin Ratio 0.9 L (1.3-2.8) Meds: Medications Discontinued Medications Generic Name Dose Route Start Last Admin Trade Name Jean PRN Reason Stop Dose Admin Benzonatate 200 mg 01/24/18 20:31 01/24/18 20:39 Tessalon Perles PO 01/24/18 20:32 200 mg ONETIME ONE Administration Hydromorphone HCl 1 mg 01/24/18 19:13 01/24/18 19:33 Dilaudid IVPUSH 01/24/18 19:14 1 mg ONETIME ONE Administration Sodium Chloride 1,000 mls @ 999 mls/hr 01/24/18 19:13 01/24/18 19:33 Normal Saline IV 01/24/18 20:13 999 mls/hr STAT ONE Administration Magnesium Sulfate 4 gm/ Premix 100 mls @ 25 mls/hr 01/24/18 20:27 IV 01/25/18 00:26 ONETIME ONE Departure - Departure Time of Disposition: 20:43 Disposition: Home, Self-Care 01 Condition: Good Clinical Impression: Bronchitis, Persistent cough for 3 weeks or longer Seasonal allergic rhinitis Qualifiers: Allergic rhinitis trigger: unspecified Qualified Code(s): J30.2 - Other seasonal allergic rhinitis - Discharge Information Referrals: PCP,None [Primary Care Provider] - Forms: ED Department Discharge Additional Instructions: My general discharge The following information is given to patients seen in the emergency department who are being discharged to home. This information is to outline your options for follow-up care. We provide all patients seen in our emergency department with a follow-up referral. The need for follow-up, as well as the timing and circumstances, are variable depending upon the specifics of your emergency department visit. If you don't have a primary care physician on staff, we will provide you with a referral. We always advise you to contact your personal physician following an emergency department visit to inform them of the circumstance of the visit and for follow-up with them and/or the need for any referrals to a consulting specialist. The emergency department will also refer you to a specialist when appropriate. This referral assures that you have the opportunity for follow-up care with a specialist. All of these measure are taken in an effort to provide you with optimal care, which includes your follow-up. Under all circumstances we always encourage you to contact your private physician who remains a resource for coordinating your care. When calling for follow-up care, please make the office aware that this follow-up is from your recent emergency room visit. If for any reason you are refused follow-up, please contact the [facility] Emergency Department at and asked to speak to the emergency department charge nurse. [facility] [address] [place] [id number] Follow-up with primary care provider early next week as we discussed. Take medications as prescribed. Return to emergency department if any new or worsening symptoms. - My Orders Last 24 Hours: My Active Orders 01/24/18 19:14 CXR [Chest 2V] [CR] Stat 01/24/18 19:40 CULTURE STREP A CONFIRMATION [RM] Stat STREP SCRN A RAPID W CULT CONF [RM] Stat 01/24/18 20:10 INFLUENZA A+B AG SCREEN [RM] Stat - Assessment/Plan Last 24 Hours: My Active Orders 01/24/18 19:14 CXR [Chest 2V] [CR] Stat 01/24/18 19:40 CULTURE STREP A CONFIRMATION [RM] Stat STREP SCRN A RAPID W CULT CONF [RM] Stat 01/24/18 20:10 INFLUENZA A+B AG SCREEN [RM] Stat
[2018-01-24] MEDS ORDERED: Sodium Chloride 0.9% 1,000 ML IV ONE (19:13)
[2018-01-24] MEDS ORDERED: HYDROmorphone 1 MG/ML Syringe IVPUSH ONE (19:13)
[2018-01-24 20:17] LABS: CHLORIDE,CL 104 mmol/L (98-107); SODIUM,NA 139 mmol/L (136-145)
[2018-01-24] MEDS ORDERED: Magnesium Sulfate/Water 4 GM in Premix Bag 1 BAG IV ONE (20:27)
[2018-01-24] MEDS ORDERED: Benzonatate 100 MG Cap PO ONE (20:31)
--- NOTE | 2018-01-27 17:35 | CR ---
EXAM DATE: 01/24/18 PATIENT'S AGE: 52 Patient: FARZANA GARSIA Facility: [place], [place] Site . Site : [id number] Study: XRay Chest [id number] 8:04:36 PM Ordering Physician: Felipe Salguero Final Report: INDICATION: cough TECHNIQUE: Chest 2 views COMPARISON: October 29, 2017 FINDINGS: Cardiovascular and mediastinum: Heart size and vasculature are normal in caliber and appearance. Mediastinum is within normal limits. Lungs and pleural spaces: No focal consolidation. No sign of pleural effusion. No pneumothorax. Bones and soft tissues: No significant findings. IMPRESSION: No acute cardiopulmonary disease. Dictated by Bhavesh Irby MD @ 01/24/2018 8:11:11 PM Dictated by: Bhavesh Irby MD @ 01/24/2018 20:11:23 (Electronic Signature) Report Signed by Proxy. [facility]
== END 2018-01-24 20:55 | disposition home or self-care (01) ==
LOC: MW.ED 18:49
DX: J40 Bronchitis, not specified as acute or chronic (principal); J30.2 Other seasonal allergic rhinitis; K21.9 Gastro-esophageal reflux disease without esophagitis; E11.9 Type 2 diabetes mellitus without complications; I10 Essential (primary) hypertension; G43.909 Migraine, unspecified, not intractable, without status migrainosus; F32.9 Major depressive disorder, single episode, unspecified; Z91.018 Allergy to other foods; Z88.8 Allergy status to other drugs, medicaments and biological substances; Z79.899 Other long term (current) drug therapy; Z79.82 Long term (current) use of aspirin; Z79.84 Long term (current) use of oral hypoglycemic drugs
CPT/HCPCS: 36415; 71046; 80053; 85025; 87081; 87804; 87880; 96361; 96374; 99283; A9270; J1170; J7040

== ENCOUNTER 2018-01-30 19:09 | Emergency (ER) | payer BC ==
--- NOTE | 2018-01-30 19:35 | EDM.PDOC ---
ED HPI GENERAL MEDICAL PROBLEM - General Chief Complaint: ENT Problem Stated Complaint: POSSIBLE EAR INFECTION Time Seen by Provider: 01/30/18 19:13 Source of Information: Reports: Patient History Limitations: Reports: No Limitations - History of Present Illness INITIAL COMMENTS - FREE TEXT/NARRATIVE: HISTORY AND PHYSICAL: History of present illness: Patient is a 52-year-old female who presents to the emergency room today with complaints of bilateral ear pain, throat pain and improved cough. She states since August 2016 she has been seeing the search engine marketing strategist for chronic ear infections and dysfunctional eustachian tube. Most recently she was placed on a Z-Gerry and given Tessalon Perles for bronchitis. She states that the Tessalon Perles were very helpful with her cough that she is currently out of these. She says over the past several days she has had increased ear pain and drainage. Attributes her sore throat to frequent coughing. Requesting a refill on her Tessalon Perles. She denies any fever, chills, chest pain, shortness of breath, abdominal pain, nausea, vomiting, diarrhea or constipation. Review of systems: As per history of present illness and below otherwise all systems reviewed and negative. Past medical history: As per history of present illness and as reviewed below otherwise noncontributory. Surgical history: As per history of present illness and as reviewed below otherwise noncontributory. Social history: No reported history of drug or alcohol abuse. Family history: As per history of present illness and as reviewed below otherwise noncontributory. Physical exam: General: Well-developed and well-nourished 52-year-old female. Alert and oriented. Nontoxic appearing and in no acute distress. HEENT: Atraumatic, normocephalic, pupils equal and reactive bilaterally, negative for conjunctival pallor or scleral icterus, mucous membranes moist, throat clear. Tympanic membrane is erythematous with fluid bubbles noted behind the TM. Dull light reflex, no bulging. Left tympanic membrane does have some erythematous along the 8 to 11 o'clock position good light reflex, no bulging. Her neck is supple, nontender, trachea midline. No drooling or trismus noted. No meningeal signs Lungs: Clear to auscultation, breath sounds equal bilaterally, chest nontender. Heart: S1S2, regular rate and rhythm without overt murmur Abdomen: Soft, nondistended, nontender. Negative for masses or hepatosplenomegaly. Negative for costovertebral tenderness. Pelvis: Stable nontender. Genitourinary: Deferred. Rectal: Deferred. Skin: Intact, warm, dry. No lesions or rashes noted. Extremities: Atraumatic, negative for cords or calf pain. Neurovascular unremarkable. Neuro: Awake, alert, oriented. Cranial nerves II through XII unremarkable. Cerebellum unremarkable. Motor and sensory unremarkable throughout. Exam nonfocal. Notes: Patient does have a right otitis media which I will treat with Augmentin. Refill of her Tessalon Perles. Supportive care measures were reviewed and discussed. To continue her Marydel nasal spray, which was recommended by the search engine marketing strategist. She will follow-up with the specialist's week. She denies any further questions or concerns at this time. Diagnostics: [] Therapeutics: [] Impression: Otitis media, right Cough Plan: 1. Please take the antibiotic as directed. Continue to use the nasal spray as discussed. 2. Use the Tessalon Perles as directed. 3. Follow up with the search engine marketing strategist as you already have arranged. Return to the ED as needed and as discussed. Definitive disposition and diagnosis as appropriate pending reevaluation and review of above. Duration: Chronic Bilateral Ear Pain Score (Numeric/FACES): 8 - Related Data Allergies Allergy/AdvReac Type Severity Reaction Status Date / Time broccoli Allergy Abdominal Verified 01/24/18 19:15 Pain metoclopramide [From Reglan] Allergy Anaphylactic Verified 01/24/18 19:15 Shock Home Meds: Home Meds Albuterol [Proair HFA] 8.5 gm IH ASDIRECTED 08/31/17 [History] DULoxetine HCl [Cymbalta] 60 mg PO DAILY 08/31/17 [History] DULoxetine [Cymbalta] 30 mg PO DAILY 08/31/17 [History] Gabapentin [Neurontin] 300 mg PO TID 08/31/17 [History] Levothyroxine [Synthroid] 50 mcg PO ACBREAKFAST 08/31/17 [History] Lisinopril [Prinivil] 5 mg PO DAILY 08/31/17 [History] Omeprazole 20 mg PO DAILY 08/31/17 [History] Potassium Chloride 10 meq PO DAILY 08/31/17 [History] QUEtiapine Fumarate [Quetiapine Fumarate ER] 600 mg PO DAILY 08/31/17 [History] Topiramate [Trokendi Xr] 100 mg PO DAILY 08/31/17 [History] atorvaSTATin [Lipitor] 40 mg PO BEDTIME 08/31/17 [History] lamoTRIgine [Lamictal XR] 200 mg PO DAILY 08/31/17 [History] metFORMIN [Glucophage XR] 1,500 mg PO DAILY 08/31/17 [History] Fluticasone Propionate [Flonase] 0 gm NASBOTH BID #1 bottle 09/01/17 [Rx] Levofloxacin [Levaquin] 750 mg PO Q48H #3 tab 09/01/17 [Rx] Oxymetazoline [Afrin Original 0.05% Nasal [place]] 0 ml MELINDA Q12HR PRN #1 bottle [Rx] Aspirin [Adult Aspirin] 81 mg PO DAILY 12/14/17 [History] Past Medical History - Past Health History Medical/Surgical History: Denies Medical/Surgical History HEENT History: Reports: Impaired Vision Cardiovascular History: Reports: Hypertension Respiratory History: Reports: SOB Neurological History: Reports: Migraines Psychiatric History: Reports: Depression Endocrine/Metabolic History: Reports: Diabetes, Type II - Infectious Disease History Infectious Disease History: Reports: Chicken Pox - Past Surgical History Female Surgical History: Reports: Hysterectomy Musculoskeletal Surgical History: Reports: Other (See Below) Other Musculoskeletal Surgeries/Procedures:: back surgery Social & Family History - Family History Family Medical History: Noncontributory - Tobacco Use Smoking Status *Q: Never Smoker - Caffeine Use Caffeine Use: Reports: Tea ED ROS ENT - Review of Systems Review Of Systems: ROS reveals no pertinent complaints other than HPI. ED EXAM, ENT - Physical Exam Exam: See Below (See dictation) Course - Vital Signs Last Recorded V/S: Last Vital Signs Temp 97.7 F 01/30/18 19:21 Pulse 77 01/30/18 19:21 Resp 20 01/30/18 19:21 BP 199/88 H 01/30/18 19:21 Pulse Ox 98 01/30/18 19:21 Departure - Departure Time of Disposition: 19:35 Disposition: Home, Self-Care 01 Clinical Impression: Otitis media Qualifiers: Otitis media type: suppurative Chronicity: unspecified Laterality: right Qualified Code(s): H66.41 - Suppurative otitis media, unspecified, right ear - Discharge Information Instructions: Otitis Media, Adult Referrals: Steve Felton [Primary Care Provider] - Additional Instructions: The following information is given to patients seen in the emergency department who are being discharged to home. This information is to outline your options for follow-up care. We provide all patients seen in our emergency department with a follow-up referral. The need for follow-up, as well as the timing and circumstances, are variable depending upon the specifics of your emergency department visit. If you don't have a primary care physician on staff, we will provide you with a referral. We always advise you to contact your personal physician following an emergency department visit to inform them of the circumstance of the visit and for follow-up with them and/or the need for any referrals to a consulting specialist. The emergency department will also refer you to a specialist when appropriate. This referral assures that you have the opportunity for follow-up care with a specialist. All of these measure are taken in an effort to provide you with optimal care, which includes your follow-up. Under all circumstances we always encourage you to contact your private physician who remains a resource for coordinating your care. When calling for follow-up care, please make the office aware that this follow-up is from your recent emergency room visit. If for any reason you are refused follow-up, please contact the [facility] Emergency Department at and asked to speak to the emergency department charge nurse. [facility] [address] [place] [phone] 1. Please take the antibiotic as directed. Continue to use the nasal spray as discussed. 2. Use the Tessalon Perles as directed. 3. Follow up with the search engine marketing strategist as you already have arranged. Return to the ED as needed and as discussed.
== END 2018-01-30 19:57 | disposition home or self-care (01) ==
LOC: MW.ED 19:09
DX: H66.41 Suppurative otitis media, unspecified, right ear (principal); I10 Essential (primary) hypertension; E11.9 Type 2 diabetes mellitus without complications; Z88.8 Allergy status to other drugs, medicaments and biological substances; Z91.018 Allergy to other foods; Z79.899 Other long term (current) drug therapy; Z79.84 Long term (current) use of oral hypoglycemic drugs; Z79.82 Long term (current) use of aspirin
CPT/HCPCS: 99282